=== PATIENT | female | born 1970 | race Caucasian/White ===

== ENCOUNTER 2017-07-28 11:26 | Emergency (ER) | payer BC, OTHER ==
[2017-07-28] MEDS ORDERED: Proparacaine 0.5% Ophth Soln 15 ML Bottle EYEBOTH STA (12:13)
--- NOTE | 2017-07-28 12:45 | EDM.PDOC ---
ED HPI GENERAL MEDICAL PROBLEM - General Chief Complaint: Eye Problems Stated Complaint: RIGHT EYE HAS A PROBLEM Time Seen by Provider: 07/28/17 12:13 Source of Information: Reports: Patient, Family, RN Notes Reviewed History Limitations: Reports: No Limitations - History of Present Illness INITIAL COMMENTS - FREE TEXT/NARRATIVE: 46-year-old female presents to the emergency department today with complaint of dilated right eye, she states she did not have her normal contact solution used water and then Visine, had replaced her contacts however replaced the left one with a new contact and the right contact was in place in the eye with the Visine solution. She noticed that the dilation of the pupil was significantly larger than the left remove the contact reported to the emergency department for further evaluation she has no complaints other than vision in the right eye is slightly blurry no pain no redness - Related Data Allergies Allergy/AdvReac Type Severity Reaction Status Date / Time No Known Allergies Allergy Verified 07/28/17 11:53 Home Meds: Home Meds NK [No Known Home Meds] 07/28/17 [History] Past Medical History - Past Surgical History Musculoskeletal Surgical History: Reports: Arthroscopic Knee Social & Family History - Tobacco Use Smoking Status *Q: Never Smoker ED ROS GENERAL - Review of Systems Review Of Systems: See Below Constitutional: Reports: No Symptoms HEENT: Reports: Vision Change. Denies: Eye Discharge, Eye Pain ED EXAM GENERAL W FULL EYE - Physical Exam Exam: See Below Text/Narrative:: Reaction to light both direct and consensual seems to be equal and brisk on both eyes while in a lighted room, repeat of the same test in a dark room reveals no difference. Exam Limited By: No Limitations General Appearance: Alert, WD/WN, No Apparent Distress Eye Exam: Right Eye: Other (aniscoria), Bilateral Eye: EOMI Eyelids: Bilateral: Normal Appearance Conjunctiva & Sclera: Bilateral: Normal Appearance Cornea Exam: Bilateral: Normal Appearance Extraocular Movements: Bilateral: Intact Pupils: Irregular Pupillary Size: Right: 7 mm, Left: 3 mm Pupillary Reaction: Bilateral: Brisk Course - Vital Signs Last Recorded V/S: Last Vital Signs Temp 97.7 F 07/28/17 12:09 Pulse 70 07/28/17 12:09 Resp 14 07/28/17 12:09 BP 103/53 L 06/09/18 12:09 Pulse Ox 98 07/28/17 12:09 - Orders/Labs/Meds Meds: Medications Discontinued Medications Generic Name Dose Route Start Last Admin Trade Name Leonela PRN Reason Stop Dose Admin Proparacaine HCl 1 ml 07/28/17 12:13 Proparacaine 0.5% Ophth Soln EYEBOTH 07/28/17 12:14 NOW STA Departure - Departure Time of Disposition: 12:45 Disposition: Home, Self-Care 01 Condition: Good Clinical Impression: Anisocoria - Discharge Information Referrals: PCP,None [Primary Care Provider] - Additional Instructions: Follow-up with your primary eye care provider upon return home, call return to the emergency department worsening of systems - Assessment/Plan Plan: Assessment Acuity = acute Site and laterality = anisocoria Etiology = probably related to long exposure to Visine whose active ingredient is tetrahydrozoline Manifestations = none Location of injury = Home Lab values = none Plan I did review adverse reactions to the active ingredient in Visine elected to do watchful waiting at this time she will follow-up with her primary eye care provider upon return home This note was dictated using [employer] voice recognition software please call with any questions on syntax or grammar.
== END 2017-07-28 13:16 | disposition home or self-care (01) ==
LOC: JP.ED 11:26
DX: H57.02 Anisocoria (principal)
CPT/HCPCS: 99283